=== PATIENT | male | born 1950 | race Caucasian/White ===

== ENCOUNTER 2017-06-07 11:13 | Emergency (ER) | payer MEDICARE ==
[~2017-06-07] VITALS: Ht 177.8 cm; Wt 86.2 kg
[2017-06-07] MEDS ORDERED: NAPROSYN500 MG PO ×2 (11:32→13:23)
== END 2017-06-07 13:15 | disposition home or self-care (01) ==
LOC: ED 11:13
DX: S20.222A Contusion of left back wall of thorax, initial encounter (principal); R03.0 Elevated blood-pressure reading, without diagnosis of hypertension; W00.2XXA Other fall from one level to another due to ice and snow, initial encounter; Y93.89 Activity, other specified; Y92.89 Other specified places as the place of occurrence of the external cause; Y99.9 Unspecified external cause status